=== PATIENT | male | born 1995 | race Two or more races ===

== ENCOUNTER 2023-11-24 17:45 | Emergency (ER) | payer SELFPAY ==
[~2023-11-24] VITALS: Ht 172.7 cm; Wt 85.0 kg
[2023-11-24] MEDS ORDERED: MIDAZOLAM HCL 2 MG/2 ML VIAL ONE (17:54)
[2023-11-24] MEDS: MIDAZOLAM HCL 2 MG/2 ML VIAL IV ONE ×2 (18:08→19:13)
[2023-11-24 18:20] VITALS: TEMP 98.2
[2023-11-24 19:13] VITALS: O2SAT 99
[2023-11-24] MEDS: HALOPERIDOL LACTATE 5MG/ML VIAL IM ONE (19:15)
[2023-11-24 20:04] LABS: BASOPHILS % 0.7 % (0.0-2.0); EOSINOPHILS % 0.1 % (0.0-5.0); HEMATOCRIT. 46.8 % (42.0-52.0); HEMOGLOBIN. 15.8 g/dL (14.0-18.0); LYMPHOCYTES % 18.9 % (20.0-50.0); MEAN CORPUSCULAR HEMOGLOBIN 31.6 pg (28.0-32.0); MEAN CORPUSCULAR HGB CONC 33.8 g/dL (31.0-37.0); MEAN CORPUSCULAR VOLUME 93.7 fL (80.0-94.0); MONOCYTES % 4.7 % (2.0-8.0); NEUTROPHILS % 75.6 % (40.0-76.0); PLATELET 196 x1000/uL (130-400); RED CELL DISTRIBUTION WIDTH 12.7 % (11.6-14.6); WHITE BLOOD COUNT 6.2 x1000/uL (4.5-11.0)
[2023-11-24 20:06] LABS: CHLORIDE 106 mEq/L (98-107); POTASSIUM 3.8 mEq/L (3.5-5.1); SODIUM 137 mEq/L (136-145)
[2023-11-24 20:07] VITALS: BP 106/47; PULSE 99; RESP 18
[2023-11-24 20:07] LABS: CALCIUM 8.9 mg/dL (8.7-10.4); CARBON DIOXIDE 24 mEq/L (21-32)
[2023-11-24 20:12] LABS: GLUCOSE 115 mg/dL (70-105); UREA NITROGEN BLOOD 9 mg/dL (9-23)
[2023-11-24 20:13] LABS: ETHANOL BLOOD 254 mg/dL (<10)
== END 2023-11-25 06:23 | disposition home or self-care (01) ==
LOC: EDBD 17:45 → ER 17:58
DX: R45.1 Restlessness and agitation (principal); F19.90 Other psychoactive substance use, unspecified, uncomplicated
CPT/HCPCS: 80048; 80320; 85025; 36415; 96372; 96374; 96376; 99285; J1630; J2250; Z7610 ×3; G0480